=== PATIENT | male | born 1980 | race American Indian/Alaskan Native ===

== ENCOUNTER 2019-01-09 16:17 | Emergency (ER) | payer OTHER ==
[2019-01-09 16:21] VITALS: BMI 22.5
[2019-01-09 16:30] VITALS: BP 131/89; PULSE 84; RESP 18; TEMP 98.3; O2SAT 97
--- NOTE | 2019-01-09 17:00 | C.PDOC ---
History Of Present Illness 38-year-old male presents to the ED requesting alcohol detox. Patient states he has been drinking for around 23 years, since he was 15 years old. Patient states he tried quitting cold turkey but is having difficulty due to withdrawals. Patient states he underwent detox several years ago but failed. He states his last drink was today, he had a beet and a shot to help with his tremors. Patient denies any other drug use, suicidal/homicidal ideation. Time Seen by Provider: 01/09/19 16:42 Chief Complaint (Nursing): Substance Abuse History Per: Patient History/Exam Limitations: no limitations Onset/Duration Of Symptoms: Hrs Current Symptoms Are (Timing): Still Present Modifying Factor(s): Alcohol Associated Symptoms: denies: Suicidal Thoughts, Suicidal Plan Involuntary Hold By: None Recent travel outside of the [place]: No Additional History Per: Patient Past Medical History Reviewed: Historical Data, Nursing Documentation, Vital Signs Vital Signs: Last Vital Signs Temp 98.3 F 01/09/19 16:21 Pulse 84 01/09/19 16:21 Resp 18 01/09/19 16:21 BP 131/89 01/09/19 16:21 Pulse Ox 97 01/09/19 16:21 Primary Care Provider: Rylan Chin Surg - Medical History PMH: No Chronic Diseases Surgical History: No Surg Hx Family History: States: Unknown Family Hx - Social History Hx Alcohol Use: Yes Hx Substance Use: No - Immunization History Hx Tetanus Toxoid Vaccination: Yes Hx Influenza Vaccination: No Hx Pneumococcal Vaccination: No Review Of Systems Psych: Positive for: Withdrawal (alcohol ), Other (requesting alcohol detox ). Negative for: Suicidal ideation Physical Exam - Physical Exam Appears: Non-toxic, No Acute Distress Skin: Normal Color, Warm, Dry Head: Atraumatic, Normacephalic Eye(s): bilateral: Normal Inspection Oral Mucosa: Moist Neck: Supple Chest: Symmetrical, No Deformity, No Tenderness Cardiovascular: Rhythm Regular, No Murmur Respiratory: Normal Breath Sounds, No Rales, No Rhonchi, No Wheezing Extremity: Normal ROM, Capillary Refill (less than 2 seconds ) Neurological/Psych: Oriented x3, Normal Speech, Normal Cognition, Other (slight hand tremors noted ) ED Course And Treatment O2 Sat by Pulse Oximetry: 97 (on RA) Pulse Ox Interpretation: Normal Medical Decision Making Medical Decision Making: Impression: 38 year old male requesting alcohol detox Plan: * Librium PO * reassess and disposition Progress: Librium PO given. Patient informed that there are no male detox beds available at this time. Patient informed that he will be placed on detox list, and contacted once beds are available. Patient verbalizes understanding and is stable for discharge Disposition Counseled Patient/Family Regarding: Diagnosis, Need For Followup - Disposition Referrals: [place] [facility] [Outside] Disposition: HOME/ ROUTINE Disposition Time: 17:13 Condition: STABLE Additional Instructions: You will be contacted by Crisis Department once there are available beds for Detox Continue to avoid alcohol Return to ED if symptoms worsen Instructions: Alcohol Withdrawal (DC), Alcohol Abuse and Alcoholism (DC), Effects of Alcohol on Your Health Forms: [employer] ([facility]) - Clinical Impression Clinical Impression: Alcohol dependence - PA / MARINA PORTER / Resident Statement MD/DO has reviewed & agrees with the documentation as recorded. - Scribe Statement The provider has reviewed the documentation as recorded by the Scribe (Mariela Campos) All medical record entries made by the Scribe were at my direction and personally dictated by me. I have reviewed the chart and agree that the record accurately reflects my personal performance of the history, physical exam, medical decision making, and the department course for this patient. I have also personally directed, reviewed, and agree with the discharge instructions and disposition.
--- NOTE | 2019-01-09 17:09 | C.PDOC ---
Time Seen by Provider: 01/09/19 16:42 Chief Complaint (Nursing): Substance Abuse Past Medical History Vital Signs: Last Vital Signs Temp 98.3 F 01/09/19 16:21 Pulse 84 01/09/19 16:21 Resp 18 01/09/19 16:21 BP 131/89 01/09/19 16:21 Pulse Ox 97 01/09/19 16:21 Primary Care Provider: Clinic[facility] - Social History Hx Alcohol Use: Yes Hx Substance Use: No - Immunization History Hx Tetanus Toxoid Vaccination: Yes Hx Influenza Vaccination: No Hx Pneumococcal Vaccination: No ED Course And Treatment O2 Sat by Pulse Oximetry: 97 Disposition - Disposition
== END 2019-01-09 17:13 | disposition home or self-care (01) ==
LOC: C.ER 16:17
DX: F10.20 Alcohol dependence, uncomplicated (principal)